=== PATIENT | male | born 1955 | race Caucasian/White ===

== ENCOUNTER 2016-12-01 06:15 | Emergency (ER) | payer BC ==
--- NOTE | 2016-12-01 06:51 | DIAGNOSTIC IMAGING REPORT ---
PROCEDURE: XR CHEST 1 VIEW INDICATION: CHEST PAIN TECHNIQUE: Portable AP view (0645 hours) COMPARISON: None. FINDINGS: Lungs are clear. Heart and mediastinum are normal. Tortuous thoracic aortic arch. Thorax is normal. IMPRESSION: 1. Negative chest.
--- NOTE | 2016-12-01 10:15 | ED NURSING NOTES ---
Clinical Report - Nurses [facility] [address] [place] [address] 12/01/2016 6:15 Patient: ZBIGNIEW PARK TRIAGE Triage time 0615. Acuity: LEVEL 2. Chief Complaint: CHEST PAIN and DISCOMFORT. Alert. No acute distress. --06:31 Linh Cannon 06:22 12/01/16. BP: 158/83. HR: 56. RR: 16. O2 saturation: 96%. Temp: 98.1 F. Pain level now 12/11. --06:31 Linh Cannon. Weight: 92.9 kg. Height/Length: 70.5 inches. BMI: 29. --06:22 Linh Cannon. Medications Aspirin Oral. --06:23 Linh Cannon Atorvastatin Calcium Oral. --06:23 Linh Cannon. Allergies No Known Drug Allergy. --06:23 Linh Cannon. History Arrived by private vehicle. Historian: patient and family. Accompanied by family. Onset. (3 days ago). ( Pt denies any other sxs, r saw PCP last week for lingering URI sxs and was placed on antibiotics). 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 SOCIAL HX: Never smoker. --06:31 Linh Cannon. PROBLEMS: Stented coronary artery. Chest Pain. Acute Coronary Syndrome. --06:24 Linh Cannon. ADDITIONAL SURGERIES: The following entry was struck by Linh Cannon, 06:33 Reason - pt denies <<STRICKEN ENTRY-- Internal Defibrillator. --16:14 Linh Cannon --END STRIKE>>. Interventions ID band on patient. To treatment room. --06:31 Linh Cannon. PHYSICAL ASSESSMENT Ambulatory to room. ( Pt also sts he is under extreme stress at work, onset eaerly September and is not sleeping). GENERAL / NEURO / PSYCH: Alert. Oriented X 4. Appears anxious. HEENT: Mucous membranes are pink. RESPIRATORY: Respirations not labored. Chest nontender. Breath sounds within normal limits. CVS: Cardiac rhythm: sinus bradycardia. Heart sounds within normal limits. Pulses within normal limits. Capillary refill less than 2 seconds. GI / : Abdomen soft and nontender. EXTREMITIES: No lower extremity edema. SKIN: Skin is warm and dry. Normal skin turgor. Skin is non-tender. --06:32 Linh Cannon. NURSING PROGRESS NOTES 06:32 12/01/2016 Site #1 started via IV in the left antecubital space with an 20g angiocath, with aseptic technique and good blood return; one attempt. Blood drawn: rainbow set. Labeled in the presence of the patient and sent to the lab. Saline lock flushed with 10 mL saline. --06:32 Linh Cannon Monitoring of patient in place. Patient gowned. Reassurance given. Call light placed in reach. Side rails up x 1. Bed placed in lowest position. Brakes of bed on. Patient ready for evaluation- chart flagged and ED physician notified. --06:32 Linh Cannon 06:51 12/01/2016 Nitroglycerin SL 0.4 mg given. Allergies verified and confirmed 5 rights. --06:51 Linh Cannon 06:52 12/01/2016 Aspirin PO 243 mg given. Allergies verified and confirmed 5 rights. --06:52 Linh Cannon EKG time: (0629 AM). EKG was ordered, performed by a tech and shown to the ED physician. --06:56 Kimberly Hassan 06:58 12/01/16. BP: 103/76. HR: 79. RR: 16. O2 saturation: 97%. Pain level now 0/10. --06:59 Linh Cannon Reassessment after medication administered. He is calm and resting quietly and has had no adverse reaction. Overall patient status is improved- he states feels better. --06:59 Linh Cannon 08:12 12/01/16. BP: 120/70. HR: 55. RR: 16. O2 saturation: 96%. --08:13 Nhi Bosch R.N. 08:13 12/01/16. The patient reports no complaints and he is calm and resting quietly. --08:13 Nhi Bosch R.N. 09:02 12/01/2016 NITROGLYCERIN PASTE Topical 1 inch. Applied to the left chest. Allergies verified and confirmed 5 rights. --09:02 Nhi Bosch R.N. DISPOSITION / DISCHARGE 10:24 12/01/16. BP: 107/72. HR: 53. RR: 19. O2 saturation: 96% on room air. Temp: 97.6 F (oral). Pain level now: 0/10. --10:26 Nhi Bosch R.N. Departure time: 10:30 Dec 01 2016. Condition at departure: improved and stable. No learning barriers present. Reviewed medication(s) side effects, precautions and dosing information. Prescription(s) given to the patient. Patient verbalized understanding. Written instructions provided in Tamazight. The patient was discharged by the physician. He was discharged home and accompanied by spouse. He left the Emergency Department ambulatory and via private vehicle. Spouse driving. --12:53 Nhi Bosch R.N. Locked/Released at 12/01/2016 13:01 by Nhi Bosch R.N.
--- NOTE | 2016-12-01 10:15 | ED ORDER SUMMARY ---
..... Patient: ZBIGNIEW PARK OrderSheet [facility] VisitID: [id number] [place] [address] 61y, M Registration Date/Time: 12/01/2016 ORDER SHEET Weight: 92.9 kg Allergies: No Known Drug Allergy GENERAL ORDERS: CBC w Diff Urgent (06:34 12/01/2016 EBonham per protocol) (Ack 6:35 Doc) (Cancelled: Other6:36 Dorene RAGLAND) CMP Urgent (06:34 12/01/2016 EBonham per protocol) (Ack 6:35 Doc) (Cancelled: Other6:36 Dorene RAGLAND) Troponin-I Urgent (06:34 12/01/2016 EBonham per protocol) (Ack 6:36 Doc) (Cancelled: Other6:36 Dorene RAGLAND) EKG - ER Stat (06:34 12/01/2016 Floresita per protocol) (6:35 Doc) Old Records (07-20-2012 [facility] admission discharge summary.) (06:35 12/01/2016 Dorene RAGLAND) (6:55 Doc) Chest 1V Urgent (06:36 12/01/2016 Dorene RAGLAND) (6:47 Deepthiger) Cardiac Panel Stat (06:36 12/01/2016 Dorene RAGLAND) (Ack 6:55 Doc) (7:12 MWinterer R.N.) Old Records (Old EKG from 2011.) (06:49 12/01/2016 Dorene RAGLAND) (6:55 Doc) Decorator Inspector (Continuous) (06:50 12/01/2016 Dorene RAGLAND) (6:53 EBagustín) Pulse oximeter (06:50 12/01/2016 Dorene RAGLAND) (6:53 EBonchencho) Oxygen (2 L/min) (NC) (06:50 12/01/2016 Dorene RAGLAND) (6:53 EBagustín) Troponin-I Urgent (08:37 12/01/2016 Dorene RAGLAND) (9:05 LMuller) MEDICATION ORDERS: Aspirin PO 325 mg (NOW) (06:44 12/01/2016 Dorene RAGLAND) (Cancelled: Wrong [facility]6:[facility]) NitroGLYCERIN SL 0.4 mg (x3 PRN Chest Pain) (06:44 12/01/2016 Dorene RAGLAND) (6:51 [facility]) Aspirin PO 243 mg (NOW) (06:51 12/01/2016 [facility] verbal order read back to Dorene RAGLAND) (6:52 [facility]) NitroGLYCERIN Paste Topical 1 in. (NOW) (08:35 12/01/2016 Dorene RAGLAND) (Ack 8:55 MWinterer R.N.) (9:02 MWinterer R.N.) IV FLUIDS: IV Saline Lock (06:36 12/01/2016 Dorene RAGLAND) (Ack 6:36 RCollier R.N.) (6:43 [facility]) ORDER SHEET NOTES: [Electronically signed by Nhi Bosch R.N. (13:01 12/01/2016)] [Electronically signed by Emma Zuniga MD (07:23 12/07/2016)] [Electronically locked/signed by Nhi Bosch R.N. (13:12/01/2016)]
--- NOTE | 2016-12-01 10:15 | ED CLINICAL REPORT ---
Clinical Report - Physicians/Mid Levels [facility] [address] [place] [address] 12/01/2016 6:15 Patient: ZBIGNIEW PARK Time Seen: 06:30 Dec 01 2016. Arrived- By private vehicle. Historian- patient. HISTORY OF PRESENT ILLNESS Chief Complaint: CHEST PAIN. 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 It was gradual in onset and has been constant. Onset during light activity. It is described as pressure and tightness and it is described as located in the central chest area. At its maximum, severity described as 3 / 10. When seen in the E.D., severity described as 2 / 10. Modifying factors. Not worsened by anything. Not relieved by anything. No nausea, vomiting or diaphoresis. He has had difficulty breathing. (Is under a lot of stress at work over the past week. Pt initially thought the pain was just stress.). Similar symptoms previously: Once, as bad (2011). Diagnosis: coronary disease (resulted in a stent: Dr Méndez). Recent medical care: Not recently seen/assessed. REVIEW OF SYSTEMS No fever, chills, cough, pedal edema or calf pain. No fainting episodes, headache, sore throat, abdominal pain or black stools. No difficulty with urination, skin rash, enlarged lymph nodes or bloody stools. All systems otherwise negative, except as recorded above. PAST HISTORY Coronary artery disease with angina pectoris. Positive stress test. Coronary stent. See old chart. Hyperlipidemia. Stented coronary artery. 2011 after admission to [facility] for CP. Chest Pain. Acute Coronary Syndrome. Medications: Atorvastatin Calcium Oral. Aspirin Oral. Allergies: No Known Drug Allergy. SOCIAL HISTORY Never smoker. ADDITIONAL NOTES The nursing notes have been reviewed. PHYSICAL EXAM Vital Signs: 12/01/2016 06:22 BP: 158/83. HR: 56. RR: 16. O2 saturation: 96%. Temp: 98.1 F. Appearance: Alert. No acute distress. Anxious. Eyes: Pupils equal, round and reactive to light. Eyes normal inspection. ENT: Ears normal. Nose normal. Pharynx normal. Neck: Normal inspection. Neck supple. CVS: Normal heart rate and rhythm. Heart sounds normal. Pulses normal. No cardiac murmur. Respiratory: No respiratory distress. Breath sounds normal. Chest nontender. Abdomen: Soft and nontender. Bowel sounds normal. Back: Normal external inspection. Skin: Skin warm. Normal skin color. No rash. Extremities: Extremities exhibit normal ROM. No calf tenderness. No lower extremity edema. Neuro: Oriented X 3. No motor deficit. No sensory deficit. Reflexes normal. LABS, X-RAYS, AND EKG EKG: No acute ischemia. Normal sinus rhythm. Rate: 57. Normal P waves. First-degree atrioventricular block. Normal QRS complex. Left axis deviation. Normal ST and T waves. Prior EKG unavailable. The study has been interpreted contemporaneously. The study has been independently viewed by me. The EKG appears to be a good tracing. Interpretation time: 06:30 Dec 01 2016. Rhythm Strip #1: Time: (5169). Rate= 89. Normal sinus rhythm. Regular rhythm. Narrow QRS complexes. No ectopy. Conduction normal. Normal ST segments and T waves. The study was interpreted by me. Chest X-ray: No acute disease. Normal lung markings present. Normal heart size. Mediastinum normal. Great vessels normal. Soft tissues normal. No infiltrate. No fracture. No bony lesion present. Normal Chest X-Ray. Views: PA and lateral. Technique: good. The X-rays were independently viewed by me, interpreted by the radiologist and contemporaneously by me and discussed with the radiologist. Prior films were not available for comparison. Laboratory Tests: CBC w Diff: (MIREILLE: 12/01/2016 06:14) ( MsgRcvd 12/01/2016 06:51) Final results Test Result Flag Units (Reference) WHITE BLOOD COUNT 8.1 K/uL (4.5-11.5) RED BLOOD COUNT 4.72 M/uL (4.50-5.90) HEMOGLOBIN 14.8 gm/dL (13.5-17.5) HEMATOCRIT 43.9 % (41.0-53.0) MEAN CELL VOLUME 93 fL (80-100) MEAN CORPUSCULAR HGB 31 pg (26-34) MEAN CORPUSCULAR HGB CONC 34 g/dL (31-37) RED CELL DISTRIBUTION WIDTH 13.8 % (11.6-14.8) PLATELET COUNT 176 K/uL (150-400) NEUTROPHIL % 57.0 % (50-75) LYMPH % 28.5 % (25-40) MONO % 9.6 % (3-14) EOSINOPHIL % 4.3 H % (0-4) BASOPHIL % 0.6 % (0-2) CHEM 13 PANEL: (MIREILLE: 12/01/2016 06:14) ( MsgRcvd 12/01/2016 06:57) Final results Test Result Flag Units (Reference) GLUCOSE 105 mg/dL (70-110) BUN 19 H mg/dL (7-18) CREATININE 1.0 mg/dL (0.6-1.3) Estimated GFR >60 mL/min Estimated GFR- >60 mL/min Note: Persistent reduction over 3 months in eGFR<60 mL/min/1.73 m2 defines CKD. Patients with eGFR values>=60 mL/min/1.73 m2 may also have CKD if evidence ofpersistent proteinuria. Additional information may be foundat www.kidney.org. SODIUM 143 mmol/L (136-145) POTASSIUM 3.7 mmol/L (3.5-5.1) CHLORIDE 108 H mmol/L (98-107) CARBON DIOXIDE 23 mmol/L (21-32) CALCIUM 8.7 mg/dL (8.5-10.1) TOTAL PROTEIN 7.0 g/dL (6.4-8.2) ALBUMIN 3.9 g/dL (3.3-5.0) BILIRUBIN, TOTAL 0.7 mg/dL (0.0-1.0) ALKALINE PHOSPHATASE 45 L U/L (46-116) AST (SGOT) 27 U/L (15-37) ALT (SGPT) 42 U/L (12-78) MAGNESIUM 2.0 mg/dL (1.8-2.4) CPK 195 U/L (24-260) TROPONIN I <0.05 L ng/mL (0.00-1.5) TROPONIN REFERENCE RANGE:<0.1 NEGATIVE0.1-1.5 INDETERMINANT>1.5 POSITIVE . Pulse Oximetry: 12/01/2016 06:22 O2 saturation: 96%. (FIO2 - room air). Interpretation: normal. PROGRESS AND PROCEDURES Course of Care: Heplock ASA 325 mg po NTG SL Pain gone 08:35 12/01/16. Discussed with Dr Parish : call person for Dr Lora . Also discussed with warehouse handler and there are no beds available. 09:34 12/01/16. NTG paste 1" Pt care transferred to Dr Barkley due to change of shift. Nadia note: I discussed the case with Dr. Lora, the pt's manager power, who knows him well. We reviewed the history, labs, and EKG, as well as the pt's current status. Dr. Lora stated he would like to have the pt started on metoprolol tartrate 25 mg BID, and to see him in the clinic tomorrow or the next day. Dr. Lora stated his clinic would give the pt a call to set this up. I have discussed the plan with the pt, who is in agreement, and we have discussed indications for return. Pt was chest pain free throughout his time in my care. Discussed case with health care provider (Guido). Reviewed test results and need for additional work-up. Agreed upon treatment plan and need for patient follow-up. Health care provider will see patient in office. Old medical records reviewed. Disposition: Discharged. Condition: stable and improved. CLINICAL IMPRESSION Chest pain characterized as "pressure" and "tightness" .12 lead EKG performed. Stable angina .12 lead EKG performed. INSTRUCTIONS (Your labs and EKG look good. Your case has been discussed with Dr. Lora, who feels that in light of your symptoms, history, and work-up today, you should see him in clinic in the next 2 days. He would like to have you take metoprolol, as prescribed, and to also take your nitroglycerine if you have further episodes of pain.). Warnings: GENERAL WARNINGS: Return or contact your physician immediately if your condition worsens or changes unexpectedly, if not improving as expected, or if other problems arise. Your Current Medications: CONTINUE TAKING THE FOLLOWING MEDICATIONS: Aspirin Oral. Atorvastatin Calcium Oral. Prescription Medications: Metoprolol 25 mg: take 1 orally every 12 hours. Dispense thirty (30). No refills. (tartrate) Follow-up: Follow up with a manager power Dr. Lora--clinic will give you a call with exact appointment time for tomorrow or . Understanding of the discharge instructions verbalized by patient and family. (Electronically signed by Emma Zuniga MD 12/07/2016 7:23)
--- NOTE | 2016-12-01 10:15 | ED CLINICAL REPORT ---
Clinical Report - Physicians/Mid Levels [facility] [address] [place] [address] 12/01/2016 6:15 Patient: ZBIGNIEW PARK Time Seen: 06:30 Dec 01 2016. Arrived- By private vehicle. Historian- patient. HISTORY OF PRESENT ILLNESS Chief Complaint: CHEST PAIN. 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 It was gradual in onset and has been constant. Onset during light activity. It is described as pressure and tightness and it is described as located in the central chest area. At its maximum, severity described as 3 / 10. When seen in the E.D., severity described as 2 / 10. Modifying factors. Not worsened by anything. Not relieved by anything. No nausea, vomiting or diaphoresis. He has had difficulty breathing. (Is under a lot of stress at work over the past week. Pt initially thought the pain was just stress.). Similar symptoms previously: Once, as bad (2011). Diagnosis: coronary disease (resulted in a stent: Dr Méndez). Recent medical care: Not recently seen/assessed. REVIEW OF SYSTEMS No fever, chills, cough, pedal edema or calf pain. No fainting episodes, headache, sore throat, abdominal pain or black stools. No difficulty with urination, skin rash, enlarged lymph nodes or bloody stools. All systems otherwise negative, except as recorded above. PAST HISTORY Coronary artery disease with angina pectoris. Positive stress test. Coronary stent. See old chart. Hyperlipidemia. Stented coronary artery. 2011 after admission to [facility] for CP. Chest Pain. Acute Coronary Syndrome. Medications: Atorvastatin Calcium Oral. Aspirin Oral. Allergies: No Known Drug Allergy. SOCIAL HISTORY Never smoker. ADDITIONAL NOTES The nursing notes have been reviewed. PHYSICAL EXAM Vital Signs: 12/01/2016 06:22 BP: 158/83. HR: 56. RR: 16. O2 saturation: 96%. Temp: 98.1 F. Appearance: Alert. No acute distress. Anxious. Eyes: Pupils equal, round and reactive to light. Eyes normal inspection. ENT: Ears normal. Nose normal. Pharynx normal. Neck: Normal inspection. Neck supple. CVS: Normal heart rate and rhythm. Heart sounds normal. Pulses normal. No cardiac murmur. Respiratory: No respiratory distress. Breath sounds normal. Chest nontender. Abdomen: Soft and nontender. Bowel sounds normal. Back: Normal external inspection. Skin: Skin warm. Normal skin color. No rash. Extremities: Extremities exhibit normal ROM. No calf tenderness. No lower extremity edema. Neuro: Oriented X 3. No motor deficit. No sensory deficit. Reflexes normal. LABS, X-RAYS, AND EKG EKG: No acute ischemia. Normal sinus rhythm. Rate: 57. Normal P waves. First-degree atrioventricular block. Normal QRS complex. Left axis deviation. Normal ST and T waves. Prior EKG unavailable. The study has been interpreted contemporaneously. The study has been independently viewed by me. The EKG appears to be a good tracing. Interpretation time: 06:30 Dec 01 2016. Rhythm Strip #1: Time: (2761). Rate= 89. Normal sinus rhythm. Regular rhythm. Narrow QRS complexes. No ectopy. Conduction normal. Normal ST segments and T waves. The study was interpreted by me. Chest X-ray: No acute disease. Normal lung markings present. Normal heart size. Mediastinum normal. Great vessels normal. Soft tissues normal. No infiltrate. No fracture. No bony lesion present. Normal Chest X-Ray. Views: PA and lateral. Technique: good. The X-rays were independently viewed by me, interpreted by the radiologist and contemporaneously by me and discussed with the radiologist. Prior films were not available for comparison. Laboratory Tests: CBC w Diff: (MIREILLE: 12/01/2016 06:14) ( MsgRcvd 12/01/2016 06:51) Final results Test Result Flag Units (Reference) WHITE BLOOD COUNT 8.1 K/uL (4.5-11.5) RED BLOOD COUNT 4.72 M/uL (4.50-5.90) HEMOGLOBIN 14.8 gm/dL (13.5-17.5) HEMATOCRIT 43.9 % (41.0-53.0) MEAN CELL VOLUME 93 fL (80-100) MEAN CORPUSCULAR HGB 31 pg (26-34) MEAN CORPUSCULAR HGB CONC 34 g/dL (31-37) RED CELL DISTRIBUTION WIDTH 13.8 % (11.6-14.8) PLATELET COUNT 176 K/uL (150-400) NEUTROPHIL % 57.0 % (50-75) LYMPH % 28.5 % (25-40) MONO % 9.6 % (3-14) EOSINOPHIL % 4.3 H % (0-4) BASOPHIL % 0.6 % (0-2) CHEM 13 PANEL: (MIREILLE: 12/01/2016 06:14) ( MsgRcvd 12/01/2016 06:57) Final results Test Result Flag Units (Reference) GLUCOSE 105 mg/dL (70-110) BUN 19 H mg/dL (7-18) CREATININE 1.0 mg/dL (0.6-1.3) Estimated GFR >60 mL/min Estimated GFR- >60 mL/min Note: Persistent reduction over 3 months in eGFR<60 mL/min/1.73 m2 defines CKD. Patients with eGFR values>=60 mL/min/1.73 m2 may also have CKD if evidence ofpersistent proteinuria. Additional information may be foundat www.kidney.org. SODIUM 143 mmol/L (136-145) POTASSIUM 3.7 mmol/L (3.5-5.1) CHLORIDE 108 H mmol/L (98-107) CARBON DIOXIDE 23 mmol/L (21-32) CALCIUM 8.7 mg/dL (8.5-10.1) TOTAL PROTEIN 7.0 g/dL (6.4-8.2) ALBUMIN 3.9 g/dL (3.3-5.0) BILIRUBIN, TOTAL 0.7 mg/dL (0.0-1.0) ALKALINE PHOSPHATASE 45 L U/L (46-116) AST (SGOT) 27 U/L (15-37) ALT (SGPT) 42 U/L (12-78) MAGNESIUM 2.0 mg/dL (1.8-2.4) CPK 195 U/L (24-260) TROPONIN I <0.05 L ng/mL (0.00-1.5) TROPONIN REFERENCE RANGE:<0.1 NEGATIVE0.1-1.5 INDETERMINANT>1.5 POSITIVE . Pulse Oximetry: 12/01/2016 06:22 O2 saturation: 96%. (FIO2 - room air). Interpretation: normal. PROGRESS AND PROCEDURES Course of Care: Heplock ASA 325 mg po NTG SL Pain gone 08:35 12/01/16. 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 Also discussed with superintendent warehouse and there are no beds available. 09:34 12/01/16. NTG paste 1" Pt care transferred to Dr Barkley due to change of shift. Nadia note: I discussed the case with Dr. Lora, the pt's casing wringer operator, who knows him well. We reviewed the history, labs, and EKG, as well as the pt's current status. Dr. Lora stated he would like to have the pt started on metoprolol tartrate 25 mg BID, and to see him in the clinic tomorrow or the next day. Dr. Lora stated his clinic would give the pt a call to set this up. I have discussed the plan with the pt, who is in agreement, and we have discussed indications for return. Pt was chest pain free throughout his time in my care. Discussed case with health care provider (Guido). Reviewed test results and need for additional work-up. Agreed upon treatment plan and need for patient follow-up. Health care provider will see patient in office. Old medical records reviewed. Disposition: Discharged. Condition: stable and improved. CLINICAL IMPRESSION Chest pain characterized as "pressure" and "tightness" .12 lead EKG performed. Stable angina .12 lead EKG performed. INSTRUCTIONS (Your labs and EKG look good. Your case has been discussed with Dr. Lora, who feels that in light of your symptoms, history, and work-up today, you should see him in clinic in the next 2 days. He would like to have you take metoprolol, as prescribed, and to also take your nitroglycerine if you have further episodes of pain.). Warnings: GENERAL WARNINGS: Return or contact your physician immediately if your condition worsens or changes unexpectedly, if not improving as expected, or if other problems arise. Your Current Medications: CONTINUE TAKING THE FOLLOWING MEDICATIONS: Aspirin Oral. Atorvastatin Calcium Oral. Prescription Medications: Metoprolol 25 mg: take 1 orally every 12 hours. Dispense thirty (30). No refills. (tartrate) Follow-up: Follow up with a casing wringer operator Dr. Lora--clinic will give you a call with exact appointment time for tomorrow or . Understanding of the discharge instructions verbalized by patient and family. (Electronically signed by Emma Zuniga MD 12/07/2016 7:23)
--- NOTE | 2016-12-01 10:15 | ED ORDER SUMMARY ---
..... Patient: ZBIGNIEW PARK OrderSheet [facility] VisitID: [id number] [place] [address] 61y, M Registration Date/Time: 12/01/2016 ORDER SHEET Weight: 92.9 kg Allergies: No Known Drug Allergy GENERAL ORDERS: CBC w Diff Urgent (06:34 12/01/2016 EBonham per protocol) (Ack 6:35 Doc) (Cancelled: Other6:36 Dorene RAGLAND) CMP Urgent (06:34 12/01/2016 EBonham per protocol) (Ack 6:35 Doc) (Cancelled: Other6:36 Dorene RAGLAND) Troponin-I Urgent (06:34 12/01/2016 EBonham per protocol) (Ack 6:36 Doc) (Cancelled: Other6:36 Dorene RAGLAND) EKG - ER Stat (06:34 12/01/2016 Floresita per protocol) (6:35 Doc) Old Records (07-20-2012 [facility] admission discharge summary.) (06:35 12/01/2016 Dorene RAGLAND) (6:55 Doc) Chest 1V Urgent (06:36 12/01/2016 Dorene RAGLAND) (6:47 Deepthiger) Cardiac Panel Stat (06:36 12/01/2016 Dorene RAGLAND) (Ack 6:55 Doc) (7:12 MWinterer R.N.) Old Records (Old EKG from 2011.) (06:49 12/01/2016 Dorene RAGLAND) (6:55 Doc) Sandwich [employer] Drink Cart Operator (Continuous) (06:50 12/01/2016 Dorene RAGLAND) (6:53 EBagustín) Pulse oximeter (06:50 12/01/2016 Dorene RAGLAND) (6:53 EBonchencho) Oxygen (2 L/min) (NC) (06:50 12/01/2016 Dorene RAGLAND) (6:53 EBagustín) Troponin-I Urgent (08:37 12/01/2016 Dorene RAGLAND) (9:05 LMuller) MEDICATION ORDERS: Aspirin PO 325 mg (NOW) (06:44 12/01/2016 Dorene RAGLAND) (Cancelled: [facility] NitroGLYCERIN SL 0.4 mg (x3 PRN Chest Pain) (06:44 12/01/2016 Dorene RAGLAND) (6:[facility] Aspirin PO 243 mg (NOW) (06:51 12/01/2016 [facility] verbal order read back to Dorene RAGLAND) (6:52 [facility] NitroGLYCERIN Paste Topical 1 in. (NOW) (08:35 12/01/2016 Dorene RAGLAND) (Ack 8:55 MWinterer R.N.) (9:02 MWinterer R.N.) IV FLUIDS: IV Saline Lock (06:36 12/01/2016 Dorene RAGLAND) (Ack 6:36 RCollier R.N.) (6:43 [facility]) ORDER SHEET NOTES: [Electronically signed by Nhi Bosch R.N. (13:01 12/01/2016)] [Electronically signed by Emma Zuniga MD (07:23 12/07/2016)] [Electronically locked/signed by Nhi Bosch R.N. (13:12/01/2016)]
--- NOTE | 2016-12-01 10:15 | ED NURSING NOTES ---
Clinical Report - Nurses [facility] [address] [place] [address] 12/01/2016 6:15 Patient: ZBIGNIEW PARK TRIAGE Triage time 0615. Acuity: LEVEL 2. Chief Complaint: CHEST PAIN and DISCOMFORT. Alert. No acute distress. --06:31 Linh Cannon 06:22 12/01/16. BP: 158/83. HR: 56. RR: 16. O2 saturation: 96%. Temp: 98.1 F. Pain level now 12/11. --06:31 Linh Cannon. Weight: 92.9 kg. Height/Length: 70.5 inches. BMI: 29. --06:22 Linh Cannon. Medications Aspirin Oral. --06:23 Linh Cannon Atorvastatin Calcium Oral. --06:23 Linh Cannon. Allergies No Known Drug Allergy. --06:23 Linh Cannon. History Arrived by private vehicle. Historian: patient and family. Accompanied by family. Onset. (3 days ago). ( Pt denies any other sxs, r saw PCP last week for lingering URI sxs and was placed on antibiotics). 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 SOCIAL HX: Never smoker. --06:31 Linh Cannon. PROBLEMS: Stented coronary artery. Chest Pain. Acute Coronary Syndrome. --06:24 Linh Cannon. ADDITIONAL SURGERIES: The following entry was struck by Linh Cannon, 06:33 Reason - pt denies <<STRICKEN ENTRY-- Internal Defibrillator. --16:14 Linh Cannon --END STRIKE>>. Interventions ID band on patient. To treatment room. --06:31 Linh Cannon. PHYSICAL ASSESSMENT Ambulatory to room. ( Pt also sts he is under extreme stress at work, onset eaerly September and is not sleeping). GENERAL / NEURO / PSYCH: Alert. Oriented X 4. Appears anxious. HEENT: Mucous membranes are pink. RESPIRATORY: Respirations not labored. Chest nontender. Breath sounds within normal limits. CVS: Cardiac rhythm: sinus bradycardia. Heart sounds within normal limits. Pulses within normal limits. Capillary refill less than 2 seconds. GI / : Abdomen soft and nontender. EXTREMITIES: No lower extremity edema. SKIN: Skin is warm and dry. Normal skin turgor. Skin is non-tender. --06:32 Linh Cannon. NURSING PROGRESS NOTES 06:32 12/01/2016 Site #1 started via IV in the left antecubital space with an 20g angiocath, with aseptic technique and good blood return; one attempt. Blood drawn: rainbow set. Labeled in the presence of the patient and sent to the lab. Saline lock flushed with 10 mL saline. --06:32 Linh Cannon Monitoring of patient in place. Patient gowned. Reassurance given. Call light placed in reach. Side rails up x 1. Bed placed in lowest position. Brakes of bed on. Patient ready for evaluation- chart flagged and ED physician notified. --06:32 Linh Cannon 06:51 12/01/2016 Nitroglycerin SL 0.4 mg given. Allergies verified and confirmed 5 rights. --06:51 Linh Cannon 06:52 12/01/2016 Aspirin PO 243 mg given. Allergies verified and confirmed 5 rights. --06:52 Linh Cannon EKG time: (0629 AM). EKG was ordered, performed by a tech and shown to the ED physician. --06:56 Kimberly Hassan 06:58 12/01/16. BP: 103/76. HR: 79. RR: 16. O2 saturation: 97%. Pain level now 0/10. --06:59 Linh Cannon Reassessment after medication administered. He is calm and resting quietly and has had no adverse reaction. Overall patient status is improved- he states feels better. --06:59 Linh Cannon 08:12 12/01/16. BP: 120/70. HR: 55. RR: 16. O2 saturation: 96%. --08:13 Nhi Bosch R.N. 08:13 12/01/16. The patient reports no complaints and he is calm and resting quietly. --08:13 Nhi Bosch R.N. 09:02 12/01/2016 NITROGLYCERIN PASTE Topical 1 inch. Applied to the left chest. Allergies verified and confirmed 5 rights. --09:02 Nhi Bosch R.N. DISPOSITION / DISCHARGE 10:24 12/01/16. BP: 107/72. HR: 53. RR: 19. O2 saturation: 96% on room air. Temp: 97.6 F (oral). Pain level now: 0/10. --10:26 Nhi Bosch R.N. Departure time: 10:30 Dec 01 2016. Condition at departure: improved and stable. No learning barriers present. Reviewed medication(s) side effects, precautions and dosing information. Prescription(s) given to the patient. Patient verbalized understanding. Written instructions provided in Divehi. The patient was discharged by the physician. He was discharged home and accompanied by spouse. He left the Emergency Department ambulatory and via private vehicle. Spouse driving. --12:53 Nhi Bosch R.N. Locked/Released at 12/01/2016 13:01 by Nhi Bosch R.N.
--- NOTE | 2016-12-07 07:23 | ED DISCHARGE INSTRUCTIONS ---
Patient: ZBIGNIEW PARK General Instructions [facility] VisitID: [id number] [place] [address] 61y, M Registration Date/Time: 12/01/2016 Chest pain characterized as "pressure" and "tightness" .12 lead EKG performed. Stable angina .12 lead EKG performed. INSTRUCTIONS (Your labs and EKG look good. Your case has been discussed with Dr. Lora, who feels that in light of your symptoms, history, and work-up today, you should see him in clinic in the next 2 days. He would like to have you take metoprolol, as prescribed, and to also take your nitroglycerine if you have further episodes of pain.). Warnings: GENERAL WARNINGS: Return or contact your physician immediately if your condition worsens or changes unexpectedly, if not improving as expected, or if other problems arise. Your Current Medications: CONTINUE TAKING THE FOLLOWING MEDICATIONS: Aspirin Oral. Atorvastatin Calcium Oral. Prescription Medications: Metoprolol 25 mg: take 1 orally every 12 hours. Dispense thirty (30). No refills. (tartrate) Follow-up: Follow up with a business development consultant Dr. Lora--clinic will give you a call with exact appointment time for tomorrow or . Understanding of the discharge instructions verbalized by patient and family. ADDITIONAL INFORMATION Angina, Stable The chest discomfort you have experienced today appears to be coming from your hearta condition called angina. Angina is a pain in the heart due to poor blood flow from blockage by plaque in one or more of the small blood vessels that deliver oxygen to the heart muscle itself. Plaque is a fatty material made up of cholesterol and other particles that build up within the artery wall. Exercise, increased activity, emotional upset, or stress can trigger this pain. With proper treatment and lifestyle changes to reduce risk factors, most people with angina are able to maintain a full and active life. Angina is not a heart attack. But if angina pain is severe or prolonged, it can lead to a heart attack, also called acute myocardial infarction, or AMI. Your angina is under control at this time. Therefore, it is safe for you to go home. Home Care Rest at home today and avoid any strenuous activity. Take medicine (usually nitroglycerin) for chest pain exactly as prescribed. Keep your nitroglycerin with you at all times. When taking nitroglycerin for angina, sit or lie down. The medication may make you feel dizzy. Place one tablet under your tongue, or between your lip and gum, or between your cheek and gum. Let the tablet dissolve completely; do not chew or swallow the tablet. If you use a spray, then spray once on orunder your tongue. Do not inhale. Close your mouth. Wait a few seconds before you swallow. After taking one tablet or spraying once, continue sitting or lying for 5 minutes. If the angina goes away completely, rest awhile and continue your normal routine. If the angina continues or gets worse, CALL 911 immediately. Do NOT delay. You may be having a heart attack! After you call 911, take a second tablet. Or, spray a second time. Wait another 5 minutes. If the angina still does not go away, take a third tablet, or spray a third time. Do not take more than 3 tablets, or spray more than 3 times, within 15 minutes. Stay on the phone with 911 for further instructions. Note: Your healthcare provider may give you slightly different instructions than those above. If so, follow them carefully. Prevention Learn how to take your own blood pressure. Keep a record of your results. Ask your doctor which readings mean that you need medical attention. Maintain a healthy weight. Get help to lose any extra pounds. Cut back on salt. Limit canned, dried, packaged, and fast foods. Dont add salt to your food at the table. Season foods with herbs instead of salt when you cook. Begin an exercise program. Ask your doctor how to get started. You can benefit from simple activities such as walking or gardening. Break the smoking habit. Enroll in a stop-smoking program to improve your chances of success. Avoid stressful situations. Learn stress-management techniques. Follow Up with your doctor as instructed. If an x-ray or ECG (electrocardiogram) was done , it will be reviewed by another specialist. You will be notified of any new findings that may affect your care. Get Prompt Medical Attention if any of the following occur: Your pain recurs and is not relieved by your usual dose of nitroglycerin Shortness of breath or increased pain with breathing Angina with weakness, dizziness, fainting, heavy sweating, nausea, or vomiting A change in the type of pain: It feels different Becomes more severe Lasts longer or occurs more often Spreads to new areas (shoulder, arm, neck, jaw, or back) Less exertion required before the pain appears Extreme drowsiness, confusion Dizziness or vertigo (dizziness with spinning sensation) Weakness of an arm or leg or one side of the face Difficulty with speech or vision You have been given the following additional information: Angina, Stable (Electronically signed by Emma Zuniga MD 12/07/2016 7:23)
--- NOTE | 2016-12-07 07:24 | ED MAR SUMMARY ---
..... Medication Administration Record [facility] [address] [place] [address] Patient: ZBIGNIEW PARK Visit ID: [id number] 61y, M Weight: 92.9 kg Height/Length: 70.5 in BMI: 29 ALLERGIES: No Known Drug Allergy Given 06:51 12/01/2016 Linh Cannon, Medication Administered: NITROGLYCERIN [SL], Dose: 0.4 mg SL. Medication Ordered: NitroGLYCERIN SL 0.4 mg (x3 PRN Chest Pain). Given 06:52 12/01/2016 Linh Cannon, Medication Administered: ASPIRIN [PO], Dose: 243 mg PO. Medication Ordered: Aspirin PO 243 mg (NOW). Given 09:02 12/01/2016 Nhi Bosch R.N. Medication Administered: NITROGLYCERIN PASTE [TOPICAL], Dose: 1 in. Topical. Medication Ordered: NitroGLYCERIN Paste Topical 1 in. (NOW).
--- NOTE | 2016-12-07 07:24 | ED MAR SUMMARY ---
..... Medication Administration Record [facility] [address] [address] Patient: ZBIGNIEW PARK Visit ID: [id number] 61y, M Weight: 92.9 kg Height/Length: 70.5 in BMI: 29 ALLERGIES: No Known Drug Allergy Given 06:51 12/01/2016 Linh Cannon, Medication Administered: NITROGLYCERIN [SL], Dose: 0.4 mg SL. Medication Ordered: NitroGLYCERIN SL 0.4 mg (x3 PRN Chest Pain). Given 06:52 12/01/2016 Linh Cannon, Medication Administered: ASPIRIN [PO], Dose: 243 mg PO. Medication Ordered: Aspirin PO 243 mg (NOW). Given 09:02 12/01/2016 Nhi Bosch R.N. Medication Administered: NITROGLYCERIN PASTE [TOPICAL], Dose: 1 in. Topical. Medication Ordered: NitroGLYCERIN Paste Topical 1 in. (NOW).
--- NOTE | 2016-12-07 07:24 | ED MED RECONCILIATION SUMMARY ---
Patient: ZBIGNIEW PARK Medication Reconciliation Report [facility] VisitID: [id number] [place] [address] 61y, M Registration Date/Time: 12/01/2016 Weight: 92.9 kg Height/Length: 60 in. BMI: 29.0 ALLERGIES: No Known Drug Allergy The patient's Home Medications are listed below: CONTINUE TAKING THE FOLLOWING MEDICATIONS: Aspirin Oral Atorvastatin Calcium Oral The source(s) of the original Home Medication information: Not obtained. The following Medications were given to the patient in the Emergency Department: Nitroglycerin [SL] SL 0.4 mg, administered: 12/01/2016 6:51:00 AM Aspirin [PO] PO 243 mg, administered: 12/01/2016 6:52:00 AM NITROGLYCERIN PASTE [TOPICAL] Topical 1 in., administered: 12/01/2016 9:02:00 AM The following Medications were prescribed to the patient: Metoprolol 25 mg: take 1 orally every 12 hours. Dispense thirty (30). No refills.(tartrate) -- Emma Zuniga MD
--- NOTE | 2016-12-07 07:24 | ED MED RECONCILIATION SUMMARY ---
Patient: ZBIGNIEW PARK Medication Reconciliation Report [facility] VisitID: [id number] [place] [address] 61y, M Registration Date/Time: 12/01/2016 Weight: 92.9 kg Height/Length: 60 in. BMI: 29.0 ALLERGIES: No Known Drug Allergy The patient's Home Medications are listed below: CONTINUE TAKING THE FOLLOWING MEDICATIONS: Aspirin Oral Atorvastatin Calcium Oral The source(s) of the original Home Medication information: Not obtained. The following Medications were given to the patient in the Emergency Department: Nitroglycerin [SL] SL 0.4 mg, administered: 12/01/2016 6:51:00 AM Aspirin [PO] PO 243 mg, administered: 12/01/2016 6:52:00 AM NITROGLYCERIN PASTE [TOPICAL] Topical 1 in., administered: 12/01/2016 9:02:00 AM The following Medications were prescribed to the patient: Metoprolol 25 mg: take 1 orally every 12 hours. Dispense thirty (30). No refills.(tartrate) -- Emma Zuniga MD
== END 2016-12-01 10:30 | disposition home or self-care (01) ==
LOC: ED SRH 06:15
DX: R07.89 Other chest pain (principal); I25.118 Atherosclerotic heart disease of native coronary artery with other forms of angina pectoris; E78.5 Hyperlipidemia, unspecified; Z79.82 Long term (current) use of aspirin
CPT/HCPCS: 90074; 90100; 90616; 92610; 92720; 95059